=== PATIENT | female | born 1995 | race Hispanic/Latino ===

== ENCOUNTER 2019-08-05 19:04 | Inpatient (IN) | payer MEDICAID, OTHER ==
[~2019-08-05] VITALS: Ht 157.5 cm; Wt 80.7 kg
[2019-08-05] MEDS ORDERED: LACTATED RINGERS 1000ML 1,000 ML IV PRN (19:51)
[2019-08-05 20:00] VITALS: BP 117/70
[2019-08-05 20:05] LABS: APPEARANCE,URINE Cloudy (CLEAR); BILIRUBIN,URINE Negative (NEGATIVE); COLOR,URINE Yellow (YELLOW); GLUCOSE, URINE (UA) Negative (NEGATIVE); KETONES,URINE Negative (NEGATIVE); LEUKOCYTE ESTERASE ,URINE Large (NEGATIVE); NITRATE,URINE Negative (NEGATIVE); OCCULT BLOOD,URINE Large (NEGATIVE); PH,URINE 6.5 (5.0-8.0); PROTEIN,URINE Trace mg/dL (NEGATIVE); UROBILINOGEN,URINE 0.2 mg/dL (0.2-1.0)
[2019-08-05 20:19] LABS: HEMATOCRIT 33.2 % (36-48); MEAN CORPUSCULAR HEMOGLOBIN 24.6 pg (27.0-33.0); MEAN CORPUSCULAR HGB CONC 31.3 g/dL (32.0-36.0); MEAN CORPUSCULAR VOLUME 78.5 fL (79-99); NUCLEATED RED BLOOD CELLS 0.1 % (0.0-0.19); PLATELET COUNT (AUTO) 209 K/uL (130-400); RED BLOOD CELL COUNT(AUTO) 4.23 MIL/uL (4.00-5.50); RED CELL DISTRIBUTION WIDTH 14.4 % (11.0-15.5); WHITE BLOOD COUNT (AUTO) 14.6 K/uL (4.8-10.8)
[2019-08-05 20:19] LABS: BACTERIA,URINE Moderate /HPF (None Seen)
[2019-08-05 20:20] LABS: MUCUS,URINE Few LPF (None Seen); SQUAMOUS EPITHELIAL CELL,UR Moderate /HPF (0-2)
[2019-08-06 02:56] LABS: RAPID PLASMA REAGIN REACTIVE (NONREACTIVE); RAPID PLASMA REAGIN TITER REACTIVE 1:4 (NONREACTIVE)
[2019-08-06] MEDS ORDERED: OXYTOCIN 10 USP UNITS/ML 20 UNIT in LACTATED RINGERS 1000ML 1,000 ML IV SCH (05:00)
[2019-08-06] MEDS ORDERED: OXYTOCIN-LR 20 UNITS/1000 ML 1,000 ML IV ONE ×2 (05:11→11:42)
[2019-08-06] MEDS ORDERED: MEPERIDINE-PF 50 MG/ML SYG IVP SCH (07:30)
[2019-08-06] MEDS ORDERED: PROMETHAZINE HCL 25 MG/ML 1ML AMPULE IM SCH ×2 (07:30→08:45)
[2019-08-06] MEDS ORDERED: MEPERIDINE-PF 50 MG/ML SYG IM SCH (08:45)
[2019-08-06] MEDS ORDERED: LIDOCAINE HCL 1% 20 ML VIAL INJ SCH (10:15)
[2019-08-06] MEDS ORDERED: LIDOCAINE HCL 1% 20 ML VIAL ONE (10:35)
[2019-08-06] MEDS ORDERED: LANOLIN 30GM OINTMENT TP PRN (11:30)
[2019-08-06] MEDS ORDERED: ACETAMINOPHEN-CODEINE 300/30MG TAB PO PRN (11:30)
[2019-08-06] MEDS ORDERED: BENZOCAINE/LANOLIN/ALOE VERA 60 ML AEROSOL TP PRN (11:30)
[2019-08-06] MEDS ORDERED: OXYTOCIN-LR 20 UNITS/1000 ML 1,000 ML IV SCH (11:30)
[2019-08-06] MEDS ORDERED: MEASLES/MUMPS/RUBELLA VACCINE, LIVE 0.5 ML/VIAL SQ PRN (11:30)
[2019-08-06] MEDS ORDERED: WITCH HAZEL 1 PAD TP PRN (11:30)
[2019-08-06] MEDS ORDERED: ACETAMINOPHEN 325 MG TAB PO PRN (11:30)
[2019-08-06] MEDS ORDERED: IBUPROFEN 600 MG TABLET PO PRN (11:30)
[2019-08-06] MEDS ORDERED: DIPH,PERTUSS(ACELL),TET VAC/PF 0.5 ML VIAL IM PRN (11:30)
[2019-08-06 12:25] VITALS: BP 108/59
[2019-08-06] MEDS ORDERED: PREN-172 PO (12:31)
[2019-08-06 16:31] VITALS: BP 106/63
[2019-08-06 19:34] VITALS: BP 105/56
[2019-08-06] MEDS: DOCUSATE SODIUM 100 MG CAP PO SCH (20:03)
[2019-08-06 23:30] VITALS: BP 104/60
[2019-08-07 03:45] VITALS: BP 108/56
[2019-08-07 05:23] LABS: HEMATOCRIT 26.8 % (36-48); MEAN CORPUSCULAR HEMOGLOBIN 24.9 pg (27.0-33.0); MEAN CORPUSCULAR VOLUME 80.5 fL (79-99); PLATELET COUNT (AUTO) 146 K/uL (130-400); RED BLOOD CELL COUNT(AUTO) 3.33 MIL/uL (4.00-5.50); RED CELL DISTRIBUTION WIDTH 14.7 % (11.0-15.5); WHITE BLOOD COUNT (AUTO) 21.5 K/uL (4.8-10.8)
[2019-08-07 07:15] LABS: HEPATITIS Bs ANTIGEN SCREEN P Negative (Negative)
[2019-08-07 07:50] VITALS: BP 115/55
[2019-08-07] MEDS: DOCUSATE SODIUM 100 MG CAP PO SCH (09:10)
[2019-08-07 11:55] VITALS: BP 94/64
--- NOTE | 2019-08-07 15:40 | NUR ---
PATIENT WAS TAKEN VIA W/C TO FAMILY VEHICLE AND CARRIED BABY IN ARMS. PATIENT STABLE AND DENIES PAIN.
--- NOTE | 2019-08-07 15:40 | NUR ---
PATIENT WAS TAKEN VIA W/C CARRYING BABY IN ARMS TO FAMILY VEHICLE. PATIENT DENIES PAIN.
== END 2019-08-07 15:40 | disposition home or self-care (01) | DRG 807 ==
LOC: LDH 19:04 → WSH 08-06 12:25
PROVIDERS: ADMIT Obstetrics & Gynecology; ATTEND Obstetrics & Gynecology
PROC: 10E0XZZ Delivery of Products of Conception, External Approach (ICD-10-PCS; principal; 2019-08-06)
PROC: 3E0234Z Introduction of Serum, Toxoid and Vaccine into Muscle, Percutaneous Approach (ICD-10-PCS; 2019-08-06)
PROC: 3E0134Z Introduction of Serum, Toxoid and Vaccine into Subcutaneous Tissue, Percutaneous Approach (ICD-10-PCS; 2019-08-06)
PROC: 10907ZC Drainage of Amniotic Fluid, Therapeutic from Products of Conception, Via Natural or Artificial Opening (ICD-10-PCS; 2019-08-06)
DX: O66.0 Obstructed labor due to shoulder dystocia (principal); Z37.0 Single live birth; Z3A.38 38 weeks gestation of pregnancy; Z23 Encounter for immunization
CPT/HCPCS: 36415; 81001; 85027; 86592; 86780; 86850; 86900; 86901; 87340; 90715; A4351; A4606; G0378; J2175; J2550; J2590; J7120